=== PATIENT | female | born 1985 | race Caucasian/White ===

== ENCOUNTER 2020-05-08 15:14 | Outpatient (CLI) | payer OTHER, SELFPAY ==
[2020-05-08 16:09] LABS: Beta HCG Quantitative < 2.39 mIU/ML
== END 2020-05-08 15:15 | disposition home or self-care (01) ==
PROVIDERS: PCP Internal Medicine; Visit Provider Obstetrics & Gynecology
DX: N92.6 Irregular menstruation, unspecified (principal)
CPT/HCPCS: 36415; 84702

== ENCOUNTER 2020-09-28 14:14 | Emergency (ER) | payer SELFPAY ==
--- NOTE | ~2020-09-28 | CT_ITS ---
EXAMINATION: CT abdomen pelvis w con INDICATION: Right lower quadrant pain TECHNIQUE: Computed tomographic images of the abdomen and pelvis were obtained after the administrati on of 100 cc of Omnipaque 350 intravenous contrast. The dose-length product (DLP) was 1079.19 mGy-cm. Automated exposure control and iterative reconstruction technique were employed. COMPARISON: None available FINDINGS: The lung bases are clear. The heart size is normal. The gallbladder is surgically absent. T he liver, spleen, pancreas, and adrenal glands are normal. The kidneys are unremarkable. No pathologi jose enlarged abdominal or pelvic lymph nodes are identified. There is no free intraperitoneal gas o r evidence of bowel obstruction. The appendix is normal. There are two adjacent cysts of the left ova ry which measure 3.2 and 2.8 cm. An IUD is present in the uterus in expected position. IMPRESSION: 1. No CT correlate for the patient's symptoms. Reviewed, dictated and finalized at location A.
[2020-09-28 14:17] VITALS: BP 139/79; PULSE 79; RESP 18; TEMP 36.3; O2SAT 99
[2020-09-28 14:50] LABS: Basophils Absolute Auto 0.1 K/mm3 (0.0-0.1); Basophils Percent Auto 0.5 % (0.2-1.2); Eosinophils Absolute Auto 0.3 K/mm3 (0-0.3); Hematocrit 40.9 % (37.0-47.0); Hemoglobin 13.6 g/dL (12.0-15.0); Immature Granulocyte Absolute 0.11 K/mm3 (0.00-0.031); Lymphocytes Absolute Auto 2.52 K/mm3 (0.9-3.2); Lymphocytes Percent Auto 22.2 % (18.3-44.2); Mean Corpuscular HGB Conc 33.3 g/dl (32-36); Mean Corpuscular Hemoglobin 30.8 pg (26-34); Mean Corpuscular Volume 92.5 fl (80-100); Mean Platelet Volume 10.6 fl (7.4-10.4); Monocytes Absolute Auto 0.6 K/mm3 (0.1-0.6); Neutrophils Absolute Auto 7.8 K/mm3 (1.3-6.7); Neutrophils Percent Auto 68.3 % (45.5-73.1); Platelet Count Result 339 k/mm3 (150-375); Red Blood Count 4.42 M/mm3 (4.2-5.4); Red Cell Distribution Width 13.1 % (11.5-14.5); White Blood Count 11.4 K/mm3 (4.5-10.0)
[2020-09-28 15:01] LABS: Alanine Aminotransferase 16 U/L (4-35); Albumin Level 4.1 g/dL (3.5-5.1); Alkaline Phosphatase 51 U/L (38-126); Anion Gap 3 mmol/L (8-16); Aspartate Amino Transferase 21 U/L (14-36); Bilirubin,Total 0.1 mg/dL (0.2-1.3); Blood Urea Nitrogen 14 mg/dL (7-17); Carbon Dioxide 31 mmol/L (22-30); Chloride 106 mmol/L (98-107); Estimated CRCL calculation 85 ml/min; Estimated Glomerular Filt Rate > 60; Glucose 95 mg/dL (65-105); Lipase 84 U/L (23-300); Potassium 3.9 mmol/L (3.4-5.0); Sodium 140 mmol/L (137-145)
--- NOTE | 2020-09-28 15:08 | ED.ABDPAIN ---
HPI - Abdominal Pain General Chief Complaint: Abdominal Pain Stated Complaint: abd pain Time Seen by Provider: 09/28/20 15:02 History of Present Illness HPI narrative: Patient is a 35-year-old female complaining of right upper quadrant pain, sharp, nonradiating, 11/29, started yesterday. Patient denies any chest pain, shortness of breath, nausea, vomiting, diarrhea, fever, chills or urinary symptoms. Related Data Home Medications Medication Instructions Recorded Confirmed clonazepam 0.5 mg PO DAILY 09/28/20 09/28/20 Allergies Allergy/AdvReac Type Severity Reaction Status Date / Time codeine Allergy Mild vomit Unverified 09/28/20 15:50 Review of Systems Review of Systems: All systems reviewed & are unremarkable except as noted in HPI and below Constitutional: Constitutional: Denies body ache(s), Denies chills, Denies excessive sweating, Denies fatigue, Denies fever(s), Denies headache(s), Denies lethargy, Denies malaise, Denies weakness and Denies weight loss Eyes: Eyes: Denies blurry vision, Denies change in vision and Denies loss of vision ENT: Denies dizziness, Denies ear discharge, Denies headache(s), Denies lip swelling, Denies epistaxis, Denies nasal congestion, Denies neck pain, Denies throat swelling and Denies tongue swelling Cardiovascular: Cardiovascular: Denies chest pain, Denies chest pain at rest, Denies chest pain with activity, Denies diaphoresis, Denies rapid heart rate, Denies edema, Denies irregular heart rhythm, Denies lightheadedness, Denies palpitations, Denies dyspnea and Denies dyspnea on exertion Respiratory: Respiratory: Denies chest congestion, Denies cough, Denies hemoptysis, Denies dyspnea and Denies dyspnea on exertion Gastrointestinal: Gastrointestinal: Denies melena, Denies hematochezia, Denies diarrhea, Denies nausea, Denies vomiting and Denies hematemesis Musculoskeletal: Musculoskeletal: Denies abnormal gait, Denies deformity, Denies joint swelling, Denies limited range of motion, Denies neck pain and Denies numbness Neurologic: Denies Abnormal speech present, Denies abnormal gait, Denies confusion, Denies dizziness, Denies headache(s), Denies focal weakness, Denies loss of vision, Denies numbness, Denies Other visual disturbances, Denies Sensory deficit (Neuro) and Denies weakness Psychiatric: Psychiatric: Denies confusion, Denies depression, Denies auditory hallucinations, Denies homicidal ideation and Denies suicidal ideation Endocrine: Endocrine: Denies cold intolerance, Denies excessive sweating, Denies fatigue, Denies heat intolerance and Denies palpitations Hematologic/Lymphatic: Hematologic/Lymphatic: Denies easy bleeding and Denies easy bruising Allergic/Immunologic: Allergic/Immunologic: Denies lip swelling, Denies throat swelling and Denies tongue swelling PMFSH Social History Social History Gender identity (if verbalized by the patient): Female Comments Past medical history: None Family history: Noncontributory Social history: Non-smoker no EtOH or drug use Exam Const: General: cooperative, healthy appearing, comfortable, no acute distress, well developed, alert and awake; No confusion Orientation/consciousness: oriented to person, oriented to place, oriented to time, patient oriented x3 and No confusion Limitations: no limitations HENMT: Head: normal to inspection, normocephalic and atraumatic Ears: hearing grossly normal bilaterally, TM normal on the right and TM normal on the left General nose exam: Normal external nose present, Normal nares present and No nasal discharge present Face and sinus: normal facial exam Mouth: Yes Normal oral and palatal mucosa present, Yes lip normal, Yes tongue normal and Yes oropharynx normal Throat: posterior oropharynx normal, tonsils normal and uvula midline Eyes: General: appearance normal, both eyes and all related structures Pupils: Equal, round and reactive pupils present EOM: EOMs intact bilaterally Neck: Neck: normal vis
[2020-09-28 15:19] VITALS: BP 133/80; PULSE 73; RESP 18; TEMP 36.6; O2SAT 98
[2020-09-28 15:19] LABS: Add Urine Microscopic? YES; Appearance Urine Cloudy (Clear); Bilirubin Urine Negative (Negative); Blood Urine Negative (Negative); Color Urine Yellow (Yellow); Glucose Urine UA Negative (Negative); Ketones Urine Negative (Negative); Leukocyte Esterase Ur Negative LEU/UL (Negative); Mucus Urine Rare /lpf; Nitrate Urine Negative (Negative); Protein Urine 1+ mg/dL (Negative); RBC Urine 0-2 /hpf (0-2); Specific Grav Ur 1.024 (1.001-1.035); Squamous Epithelial Cell Urine Moderate /hpf (Few); Urobilinogen Urine Negative mg/dL (<2.0); WBC Urine 0-3 /hpf
[2020-09-28 15:24] VITALS: BP 133/80; O2SAT 100
[2020-09-28] MEDS: SODIUM CHLORIDE 0.9% IV 1,000 ML 999 ML IV CONT (15:55)
--- NOTE | 2020-09-28 16:00 | PC.NURSE ---
Pt to imaging at this time
[2020-09-28 16:17] VITALS: BP 110/80; O2SAT 100
[2020-09-28 16:31] VITALS: BP 104/77; O2SAT 100
--- NOTE | 2020-09-28 17:51 | PC.NURSE ---
Pt requesting RN speak with doctor about prescription medications. Delay in discharge in order to follow up with Dr. Maldonado.
--- NOTE | 2020-09-28 18:17 | PC.NURSE ---
Pt requested a prescription for pain medication, spoke with Dr. Maldonado and requested he go into pt room to discuss prescription. RN sent Dr. Maldonado into the room to discuss with pt. Pt verbalized frustration with nurse about the interaction, stating that she felt like she was spoken to like she was stupid. Pt referred to Dr. Maldonado as a jackass. Pt asked for pt evaluation form, and asked for a copy of document. RN made copy and gave to charge nurse. On return, pt verbalized frustration with nurse for sending doctor in, stating RN lied about asking the doctor about prescription and then returning. RN apologized and explained that RN thought it would be simpler for doctor to speak about prescription with pt directly. Pt asked for a new doctor for pain medications. Pt stated actually, you did not do your job, I want a new form. RN gave pt new form, pt filled out new form and RN made copy. Gave second form to charge nurse. Pt took pictures of bag of transport devices, gauze and tape on floor, and unused/empty blood tubes at bedside. 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 Pt states that she will be calling the [employer]. Before leaving, pt stated to RN you did a really great job up until the end but now and then walked out.
--- NOTE | 2020-09-28 18:25 | PC.NURSE ---
Pt refusing exit vitals
== END 2020-09-28 18:25 | disposition home or self-care (01) ==
PROVIDERS: Emergency Provider Emergency Medicine; PCP Internal Medicine
DX: R10.11 Right upper quadrant pain (principal)
CPT/HCPCS: 36415; 74177; 80053; 81001; 81025; 83690; 85025; 96360; 99284; J7030; Q9967

== ENCOUNTER 2024-07-14 12:23 | Emergency (ER) | payer BC, SELFPAY ==
[2024-07-14 12:31] VITALS: BP 136/93; PULSE 99; RESP 18; TEMP 36.2; O2SAT 99
--- NOTE | 2024-07-14 12:56 | ED.URI ---
HPI - URI/Sore Throat General Chief Complaint: Upper Respiratory Infection Stated Complaint: Flu test/covid test Time Seen by Provider: 07/14/24 12:56 Source: patient Mode of arrival: ambulatory Limitations: no limitations History of Present Illness HPI Narrative: 39-year-old female presents with complaint of fatigue, body aches, headache, fever starting last night. Symptoms getting progressively worse. 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 Reports multiple residents are positive. Denies nausea vomiting diarrhea. No chest pain or shortness breath. All systems reviewed and negative except as noted above. Related Data Home Medications ?Medication ?Instructions ?Recorded ?Confirmed ?Last Taken ?Type alprazolam 0.5 mg tablet mg 07/14/24 Unknown History duloxetine 30 mg capsule,delayed mg PO 07/14/24 Unknown History release levonorgestrel (Mirena) 1 device intrauterine ONCE 07/14/24 Unknown History sertraline 100 mg tablet mg 07/14/24 Unknown History Allergies Allergy/AdvReac Type Severity Reaction Status Date / Time codeine AdvReac Mild vomit Verified 07/14/24 12:35 Review of Systems Review of Systems: CONSTITUTIONAL: Reports fever, chills, or sweats. EYES: Denies visual changes, redness, or discharge. ENT: Denies rhinorrhea, congestion, sore throat, or otalgia. CARDIOVASCULAR: Denies chest pain, palpitations, or edema. RESPIRATORY: Denies cough or dyspnea. GASTROINTESTINAL: Denies abdominal pain, nausea, vomiting, or diarrhea. GENITOURINARY: Denies dysuria or hematuria. SKIN: Denies rash or itching. MUSCULOSKELETAL: Denies back pain, joint pain. Reports myalgia. NEUROLOGIC: reports headache. Denies numbness, or weakness. PSYCHIATRIC: Denies anxiety or depression. All other systems reviewed are negative, except as documented in HPI. PMFSH Social History Social History Gender identity (if verbalized by the patient): Female Comments At time of signature, agree with nursing past medical, surgical, social and family history. There is no relevant family history pertinent to the presenting complaint. Exam Narrative: GENERAL: This is a well-nourished, well-developed patient, ill-appearing but no acute distress HEAD: normocephalic, atraumatic. EYES: PERRL. Sclera clear/white. Vision is grossly intact. EARS: External ears normal, auditory canals clear and without drainage, TMs normal without perforation. Hearing grossly intact. NOSE: External nose normal with no obvious nasal discharge, nares without redness, no rhinorrhea. THROAT: Mucous membranes moist, posterior pharynx clear. NECK: Neck supple, non-tender without lymphadenopathy, masses or thyromegaly. CARDIOVASCULAR: Regular rate and rhythm without murmurs, gallops, or rubs. RESPIRATORY: Clear to auscultation. Breath sounds equal bilaterally. No wheezes, rales, or rhonchi. SKIN: warm, Dry, intact with no suspicious lesions or rash, good texture and turgor. NEURO: awake, alert, and oriented to person, place and time. There were no obvious focal neurologic abnormalities. EXTREMITIES: No joint tenderness, effusion, or edema noted. Course Course Level of Care: Express Care Visit Vital Signs Vital signs: Vital Signs Temperature 36.2 C L 07/14/24 12:31 Pulse Rate 99 07/14/24 12:31 Respiratory Rate 18 07/14/24 12:31 Blood Pressure 136/93 H 07/14/24 12:31 Pulse Oximetry 99 07/14/24 12:31 Oxygen Delivery Room Air 07/14/24 12:31 Temperature 36.2 C L 07/14/24 12:31 Pulse Rate 99 07/14/24 12:31 Respiratory Rate 18 07/14/24 12:31 Blood Pressure 136/93 H 07/14/24 12:31 Pulse Oximetry 99 07/14/24 12:31 Oxygen Delivery Room Air 07/14/24 12:31 reviewed MDM - URI/Sore Throat MDM Narrative Medical decision making narrative: negative COVID and influenza. Discussed results and patient's symptoms with her. It is possible that influenza is false negative, patient has had symptoms left 24 hours. Will treat with Tamiflu, patient agrees with plan of care. Patient is alert, nontoxic. Patient is aware of diagnosis, understands and agrees to treatment plan. Anticipatory guidance given. Patient agrees to follow-up as directed and is aware of reasons to seek care at the emergency department. Portions of this record may have been created with voice recognition software Differential Diagnosis Differential diagnosis: Likely upper respiratory infection, sinusitis, viral infection and influenza Discharge Plan Discharge Clinical Impression: Acute viral syndrome Patient Disposition: Home, Self-Care Condition: Stable Instructions: Influenza (ED) Additional Instructions: your COVID and influenza test was negative today. Due to having symptoms for less than 24 hours it is possible that your influenza test is a false negative. I am prescribing Tamiflu today. Take as prescribed. Take ibuprofen or Tylenol every 6-8 hours as needed for pain and fever. Drink at least 64 oz of water a day. Follow-up with your primary care physician if symptoms are not improving. Patient Language: Slovak Prescriptions: New ondansetron 4 mg tablet,disintegrating 4 mg PO Q8H PRN (Reason: nausea and vomiting) Qty: 12 0RF oseltamivir [Tamiflu] 75 mg capsule 75 mg PO Q12H 5 Days Qty: 10 0RF No Action sertraline 100 mg tablet alprazolam 0.5 mg tablet duloxetine 30 mg capsule,delayed release(DR/EC) PO Mirena 21 mcg/24hr (up to 8 yrs) 52 mg intrauterine device 1 device intrauterine ONCE Rx Instructions: as a single dose Follow-up/Referrals: Joe,GIANA Goodrich [Primary Care Provider] - Stand Alone Forms: Work/School Release IP Time of Disposition: 13:04
[2024-07-14 13:01] LABS: EDCOVIDSCREEN Negative (Negative); EDINFLUASCREEN Negative (Negative); EDINFLUBSCREEN Negative (Negative)
--- OUTSIDE RECORDS SUMMARY | 2024-07-15 04:52 | XMS_ITS | Encounter Summary ---
Author Organization [facility] Address [address] [place] [address]. [place], [place] [id number] [place] [address] Care Team Providers Care Sound Installation Worker Name Role Phone Moon Diaz PA-C Primary Care Provider [phone] Encounter Details Date Type Department Care Team (Late st Contact Info) Description 07/14/2023 N42 Message Enc [facility] [address] [place], [place] [id number] [facility] App[facility]ment Social History Tobacco Use Types Packs/Day Years Used Date Smoking Tobacco: Never Smokeless Tobacco: Never Alcohol Use Standard Drinks/Week Comments Not Currently 0 (1 standard drink = 0.6 oz pur e alcohol) PHQ-2 Answer Date Recorded Patient Health Questionnaire-2 Score 0 04/01/2023 Comments No Sex and Gender Information Value Date Recorded Sex Assigned at Not on file 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
--- OUTSIDE RECORDS SUMMARY | 2024-07-15 04:52 | XMS_ITS | Clinical Summary ---
Author Organization [facility] Address [address] [place] [address]. [place], [place] [id number] [place] [address] Care Team Providers Care Whip Operator Name Role Phone Moon Diaz PA-C Primary Care Provider [phone] Allergies No known active allergies Medications ALPRAZolam (XANAX) 0.5 MG tablet Take 1 tablet (0.5 mg total) by mouth 2 (two) times daily. 08/24/2022 Active sertraline (ZOLOFT) 100 MG tablet Take 2 tablets (200 mg total) by mouth daily. 08/22/2022 Active zolpidem (AMBIEN) 5 MG tablet TAKE 1 TABLET BY MOUTH EVERY NIGHT NEEDED FOR INSOMNIA 09/03/2022 Active phentermine (ADIPEX-P) 37.5 MG tablet Take 1 tablet (37.5 mg total) by mouth every morning before breakfast. Active meloxicam (MOBIC) 15 MG tabletIndicatio ns:Bilateral hip pain,Chronic bilateral low back pain without sciatica Take 1 tablet (15 mg total) by mouth daily. 30 tablet 1 11/18/2023 Active albuterol sulfate HFA 108 (90 Base) MCG/ACT inhalerIndicati ons:Wheezing Inhale 2 puffs into the lungs every 6 (six) hours as needed for Wheezing. 6.7 g 11/18/2023 Active azithromycin (ZITHROMAX) 250 MG tabletIndicatio ns:Bronchitis TAKE 2 TABS PO DAY 1 THEN 1 TABLET DAILY 6 tablet 11/18/2023 Active methylPREDNISol one, IGOR, (MEDROL DOSEPAK) 4 MG tabletIndicatio ns:Bronchitis 6 TABLETS ON DAY ONE, 5 TABLETS DAY TWO, 4 TABLETS DAY THREE, 3 TABLETS DAY FOUR, 2 TABLETS DAY FIVE, AND 1 TABLET DAY SIX 1 each 11/30/2023 Active azithromycin (ZITHROMAX) 250 MG tabletIndicatio ns:Exposure to pertussis TAKE 2 TABS PO DAY 1 THEN 1 TABLET DAILY 6 tablet 04/22/2024 Active Active Problems Problem Noted Date Diagnosed Date Anxiety and depression 09/05/2022 Primary insomnia 09/05/2022 Resolved Problems Problem Noted Date Diagnosed Date Resolved Date Encounter for preventive health examination 11/21/2012 09/08/2022 Encounters Date Type Department Care Team Description 04/22/[address] [place] Message Enc [facility] Family & Internal Medicine [address] [address] Spring Lira, ISAURO Whooping cough from Last 3 Months Immunizations Name Administration Dates Next Due Influenza (Generic) 03/03/2017 Influenza Adult (Generic) 04/29/2021,05/20/2018 MMR (MMRII) 04/11/2017 Tdap (Generic) 03/03/2017 Family History Medical History Relation Comments mds Father None Mother Cancer Sister 1 Relation Status Comments Father Alive Mother Alive Sister 1 Alive Sister 2 Alive Social History Tobacco Use Types Packs/Day Years Used Date Smoking Tobacco: Never Smokeless Tobacco: Never Tobacco Cessation:Counseling Given: No Alcohol Use Standard Drinks/Week Comments Not Currently 0 (1 standard drink = 0.6 oz pur e alcohol) PHQ-2 Answer Date Recorded Patient Health Questionnaire-2 Score 2 11/18/2023 Comments No Sex and Gender Information Value Date Recorded Sex Assigned at Not on file 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 Gender Identity Not on file Sexual Orientation Not on file Last Filed Vital Signs Vital Sign Reading Time Taken Comments Blood Pressure 119/86 11/18/2023 8:08 AM CDT Pulse 97 11/18/2023 8:08 AM CDT Temperature 36.7 ??C (98.1 ??F) 11/18/2023 8:08 AM CD T Respiratory Rate 18 11/18/2023 8:08 AM CDT Oxygen Saturation 93% 11/18/2023 8:08 AM CDT Inhaled Oxygen Concentration - - Weight 102.9 kg (226 lb 12.8 oz) 2023 8:08 AM CDT Height 165.1 cm (5' 5 ) 11/18/2023 8:08 AM CDT Body Mass Index 37.74 11/18/2023 8:08 AM CDT Plan of Treatment Health Maintenance Due Date Last Done Comments Cervical Cancer Screening Pa p Smear (Age 30 to 64) Every 3 Years 1983 Hepatitis B Vaccines (1 of 3 - 19+ 3-dose series) 2002 Cervical Cancer Screening Pa p with HPV Testing (Age 30 to 64) Every 5 Years 2013 Cervical Cancer Screening with HPV 2013 Mammogram Screening 2023 Annual Physical 09/06/2023 09/05/2022 COVID-19 Vaccine (4 - 2023-2 5 season) 2024 09/04/2021, 03/14/2021, 02/14/2021 Influenza Adult (#1) 2024 04/29/2021, 05/20/2018, 03/03/2017 PHQ-2 (Physician [place]) 11/17/2024 11/18/2023 DTaP, Tdap and Td Vaccines ( 2 - Td or Tdap) 03/03/2027 03/03/2017 Hepatitis C 09/05/2052 Postponed from 2001 (Patient Refused) HPV Vaccines Aged Out No longer eligi ble based on patient's age to complete this topic Meningococcal B Vaccine Aged Out No l onger eligible based on patient's age to complete this topic Meningococcal Vaccine Aged Out No cesar roxy eligible based on patient's age to complete this topic Pneumococcal Vaccine: Pediatrics (0 to 5 Years) and At-Risk Patients (6 to 64 Years) Aged Out No longer eligible b ased on patient's age to complete this topic RSV Immunizations Under 20 Months Aged Out No longer eligible b ased on patient's age to complete this topic Insurance [facility] Care Teams Whip Operator Relationship Specialty Start Date End Date Moon Diaz PA-C [address] [place] [address] PCP - General PHYSICIAN SCHEDULE ANALYST 11/28/22
--- OUTSIDE RECORDS SUMMARY | 2024-07-15 04:52 | XMS_ITS | Encounter Summary ---
Author Organization [facility] Address [address] [place] [address]. [place], [place] [address] [place] [address] Care Team Providers Care Wetlands Conservation Laborer Name Role Phone Russel Jo MD Primary Care Provider [phone] Spring Lira Primary Care Provider [phone] Moon Diaz PA-C Primary Care Provider [phone] Encounter Details Date Type Department Care Team (Late st Contact Info) Description 06/06/2022 [place] Message [employer] [facility] [employer] [facility] [address] [place] [address] Nas, [facility] Provider Proof of Name Change Social History Tobacco Use Types Packs/Day Years Used Date Smoking Tobacco: Never Smokeless Tobacco: Never Alcohol Use Standard Drinks/Week Comments Yes 0 (1 standard drink = 0.6 oz pur e alcohol) Comments No Sex and Gender Information Value Date Recorded Sex Assigned at Not on file Legal Sex Female 8:13 AM SENIOR PHYSICAL THERAPIST Gender Identity Not on file Sexual Orientation Not on file documented as of this encounter Plan of Treatment Not on file documented as of this encounter Visit Diagnoses Not on filedocumented in this encounter Additional Health Concerns Infection Onset Date Last Indicated Resolved Time COVID-19 Rule Out 04/01/2023 04/01/2023 04/01/2023 9:56 AM CDT COVID-19 Rule Out 04/01/2023 04/01/2023 04/01/2023 10:00 AM CDT documented as of this encounter Care Teams Wetlands Conservation Laborer Relationship Specialty Start Date End Date Russel Jo MD PCP - General 06/27/15 07/30/22 Spring Lira APNP [address] [phone] PCP - General Nurse Practitioner Family 07/31/2211/27 Moon Diaz PA-C [address] [phone] PCP - General PHYSICIAN NURSE AIDE EVALUATOR 11/28/22 documented as of this encounter
--- OUTSIDE RECORDS SUMMARY | 2024-07-15 04:52 | XMS_ITS | Encounter Summary ---
Author Organization [facility] Address [address] [place] [address]. [place], [place] [id number] [place] [address] Care Team Providers Care Clinical Trials Nurse Name Role Phone Spring Lira Primary Care Provider [phone] Moon Diaz PA-C Primary Care Provider [phone] Encounter Details Date Type Department Care Team (Late st Contact Info) Description 09/24/2022 MyChart Message Enc [facility] Family & Internal Medicine [facility] [address] [place] [address] Spring Lira APNP [address] [facility] [address] [place] [address] Medication for weight loss Social History Tobacco Use Types Packs/Day Years Used Date Smoking Tobacco: Never Smokeless Tobacco: Never Alcohol Use Standard Drinks/Week Comments Yes 0 (1 standard drink = 0.6 oz pur e alcohol) PHQ-2 Answer Date Recorded Patient Health Questionnaire-2 Score 0 09/05/2022 Comments No Sex and Gender Information Value Date Recorded Sex Assigned at Not on file 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 No / Unsure 09/05/2022 7:35 AM CDT documented as of this encounter Progress Notes * ISAURO Niño - 09/25/2022 9:02 AM CDT She will need to be seen for starting a controlled substance if appropriate. Since I am leaving in a month she will need to establish with a new PCP as I will not start a new controlled at this time.Thank you * Jose A Reza RN - 09/24/2022 2:51 PM CDT Pt here for appt recently. But do you need her to come back to discuss this? documented in this encounter Plan of Treatment Not on file documented as of this encounter Visit Diagnoses Not on filedocumented in this encounter Additional Health Concerns Infection Onset Date Last Indicated Resolved Time COVID-19 Rule Out 04/01/2023 04/01/2023 04/01/2023 9:56 AM CDT COVID-19 Rule Out 04/01/2023 04/01/2023 04/01/2023 10:00 AM CDT Assessment Noted Time PHQ-9 Depression Total Score: 2 09/06/19 23 7:51 AM CDT documented as of this encounter Care Teams Clinical Trials Nurse Relationship Specialty Start Date End Date Spring Lira APNP [address] [facility] [address] [place] [address] PCP - General Nurse Practitioner Family 07/31/2211/27 Moon Diaz PA-C [address] [facility] [address] [place] [address] PCP - General PHYSICIAN RETAIL ACCOUNT MANAGER 11/28/22 documented as of this encounter
== END 2024-07-14 13:10 | disposition home or self-care (01) ==
PROVIDERS: Emergency Provider Nurse Practitioner Family; PCP Physician Assistant
DX: B34.9 Viral infection, unspecified (principal); Z20.822 Contact with and (suspected) exposure to COVID-19
CPT/HCPCS: 87426; 87804; 99213; G0463